=== PATIENT | female | born 1970 | race Caucasian/White ===

== ENCOUNTER → 2022-03-05 | Day surgery (SDC) | payer OTHER | END | disposition home or self-care (01) | LOC: FMAMMOTONE 12:04 | PROVIDERS: ATTEND Family Medicine | PROC: 0HBU3ZX Excision of Left Breast, Percutaneous Approach, Diagnostic (ICD-10-PCS; principal; 2022-03-05) | DX: N60.12 Diffuse cystic mastopathy of left breast (principal); N64.89 Other specified disorders of breast; N63.20 Unspecified lump in the left breast, unspecified quadrant | CPT/HCPCS: 19081; 76098-TC-FY; 87899; 88305-TC; A4648 ==